=== PATIENT | female | born 1980 | race Caucasian/White ===

== ENCOUNTER 2018-03-03 17:08 | Inpatient (IN) | payer MEDICAID ==
[2018-03-03] MEDS ORDERED: MISOPROSTOL 200 MCG TAB PR (18:30)
[2018-03-03] MEDS ORDERED: CEFAZOLIN 2 GM/50 ML (PMX) 50 ML IV (18:30)
[2018-03-03] MEDS ORDERED: CARBOPROST 250 MCG INJ IM (18:30)
[2018-03-03] MEDS ORDERED: METHYLERGONOVINE 0.2 MG INJ IM (18:30)
[2018-03-03] MEDS: LACTATED RINGER'S 1,000 ML IV (18:49)
[2018-03-03 19:07] LABS: ADD MAN DIFF? NO
[2018-03-03 19:10] LABS: WHITE BLOOD COUNT 9.5 10^3/ul (4.8-10.8)
[2018-03-03 19:10] LABS: BASOPHILS % 0.2 % (0.0-2.0); EOSINOPHILS # 0.1 10^3/ul (0.0-0.5); HEMATOCRIT 35.4 % (37.0-47.0); LYMPHOCYTES # 1.8 10^3/ul (0.8-2.9); LYMPHOCYTES % 18.9 % (15.0-51.0); MEAN CORPUSCULAR HEMOGLOBIN 26.2 pg (29.0-33.0); MEAN CORPUSCULAR HGB CONC 31.1 g/dl (32.0-37.0); MEAN CORPUSCULAR VOLUME 84.3 fl (82.0-101.0); MEAN PLATELET VOLUME 11.1 fl (7.4-10.4); MONOCYTE # 0.6 10^3/ul (0.3-0.9); MONOCYTES % 6.1 % (0.0-11.0); NEUTROPHILS % 72.9 % (39.0-77.0); PLATELET COUNT 230 10^3/UL (140-415); RED CELL DISTRIBUTION WIDTH 18.9 % (11.5-14.5)
[2018-03-03 19:30] LABS: PROTIME 12.2 Sec (11.9-14.9)
[2018-03-03 19:31] LABS: PARTIAL THROMBOPLASTIN TIME 25.1 Sec (25.0-35.0)
[2018-03-03] MEDS ORDERED: ONDANSETRON 4 MG INJ (20:54)
[2018-03-03] MEDS ORDERED: METOCLOPRAMIDE 10 MG INJ (20:54)
[2018-03-03] MEDS ORDERED: BUPIVACAINE 0.75%/DEXT (SPINAL) 2 ML INJ (20:56)
[2018-03-03] MEDS ORDERED: morphine SULFATE/PF (10 MG/10 ML) INJ (20:56)
[2018-03-03] MEDS ORDERED: OXYTOCIN 10 UNIT INJ (20:56)
[2018-03-03] MEDS: METOCLOPRAMIDE (1 MG/ML) 10 ML CUP PO (21:00)
[2018-03-03] MEDS: ONDANSETRON 4 MG INJ IV (21:03)
[2018-03-03] MEDS: FAMOTIDINE 20 MG INJ IV (21:03)
[2018-03-03] MEDS: OXYTOCIN 30 UNITS/LR 500 ML IV (22:54)
[2018-03-03] MEDS ORDERED: FENTAnyl 50 MCG/ML VIAL IV ×2 (23:00)
[2018-03-03] MEDS ORDERED: ZOLPIDEM 5 MG TAB PO (23:00)
[2018-03-03] MEDS ORDERED: HYDROmorphONE 0.5 MG/0.5 ML SYG IV ×2 (23:00)
[2018-03-03] MEDS ORDERED: HYDROmorphONE 1 MG/5 ML IV SYRINGE IV ×3 (23:00)
[2018-03-03] MEDS ORDERED: NALOXONE (0.4 MG/ML) INJ IV (23:00)
[2018-03-03] MEDS ORDERED: ONDANSETRON 4 MG INJ IV ×2 (23:00)
[2018-03-03] MEDS ORDERED: KETOROLAC 30 MG INJ IV (23:00)
[2018-03-03] MEDS ORDERED: DIPHENHYDRAMINE 50 MG INJ IV ×2 (23:00)
[2018-03-04] MEDS: KETOROLAC 30 MG INJ IV ×3 (00:30→19:36)
[2018-03-04] MEDS ORDERED: MISOPROSTOL 200 MCG TAB PR (01:30)
[2018-03-04] MEDS ORDERED: METHYLERGONOVINE 0.2 MG INJ IM (01:30)
[2018-03-04] MEDS ORDERED: CARBOPROST 250 MCG INJ IM (01:30)
[2018-03-04] MEDS ORDERED: OXYTOCIN 30 UNITS/LR 500 ML IV (01:30)
[2018-03-04] MEDS ORDERED: OXYCODONE/ACETAMINOPHEN (5/325) TAB PO ×2 (01:30)
[2018-03-04] MEDS ORDERED: LANOLIN 7 GM TUBE TOP (01:30)
[2018-03-04] MEDS: CEFAZOLIN 1 GM/50 ML (PMX) 50 ML IVPB (02:02)
[2018-03-04] MEDS: OXYTOCIN 30 UNITS/LR 500 ML IV ×6 (02:37→21:21)
[2018-03-04] MEDS: SENNA/DOCUSATE NA (8.6MG/50MG) TAB PO ×2 (09:02→22:34)
[2018-03-04 10:27] LABS: ADD MAN DIFF? NO
[2018-03-04 10:34] LABS: WHITE BLOOD COUNT 11.2 10^3/ul (4.8-10.8)
[2018-03-04 10:34] LABS: BASOPHILS % 0.2 % (0.0-2.0); EOSINOPHILS # 0.1 10^3/ul (0.0-0.5); EOSINOPHILS % 0.6 % (0.0-7.0); HEMATOCRIT 30.9 % (37.0-47.0); HEMOGLOBIN 9.5 g/dl (12.0-16.0); LYMPHOCYTES # 1.2 10^3/ul (0.8-2.9); LYMPHOCYTES % 10.3 % (15.0-51.0); MEAN CORPUSCULAR HGB CONC 30.7 g/dl (32.0-37.0); MEAN CORPUSCULAR VOLUME 84.7 fl (82.0-101.0); MEAN PLATELET VOLUME 11.2 fl (7.4-10.4); MONOCYTE # 0.6 10^3/ul (0.3-0.9); MONOCYTES % 5.5 % (0.0-11.0); NEUTROPHIL # 9.3 10^3/ul (1.6-7.5); NEUTROPHILS % 82.9 % (39.0-77.0); PLATELET COUNT 191 10^3/UL (140-415); RED BLOOD COUNT 3.65 10^6/ul (4.20-5.40)
[2018-03-04 13:31] LABS: HEPATITIS B SURFACE ANTIGEN NEGATIVE (NEGATIVE)
[2018-03-04 15:02] LABS: RAPID PLASMA REAGIN NONREACTIVE (NR)
[2018-03-04] MEDS: IBUPROFEN 600 MG TAB PO (23:39)
[2018-03-05] MEDS: OXYTOCIN 30 UNITS/LR 500 ML IV ×5 (01:21→17:21)
[2018-03-05] MEDS: HYDROCODONE/APAP (5/325) TAB PO ×2 (03:04→16:00)
[2018-03-05] MEDS: IBUPROFEN 600 MG TAB PO ×3 (06:09→17:32)
[2018-03-05] MEDS: SENNA/DOCUSATE NA (8.6MG/50MG) TAB PO ×2 (09:52→20:30)
[2018-03-05] MEDS: NA PHOSPHATE/BIPHOS 133 ML ENEMA PR (17:38)
[2018-03-06] MEDS: IBUPROFEN 600 MG TAB PO ×3 (00:20→12:36)
[2018-03-06] MEDS: SENNA/DOCUSATE NA (8.6MG/50MG) TAB PO (09:29)
[2018-03-06] MEDS: DIPHTH/TET/ACEL PERTUSS (ADULT) 0.5 ML VIAL IM* (11:37)
== END 2018-03-06 15:00 | disposition home or self-care (01) | DRG 766 ==
LOC: OBT 17:08 → PP1 03-04 00:56 → L-D 17:09 → OBT 18:00 → L-D 18:00
PROVIDERS: Obstetrics & Gynecology
PROC: 10D00Z1 Extraction of Products of Conception, Low, Open Approach (ICD-10-PCS; principal; 2018-03-03 21:00)
DX: O34.211 Maternal care for low transverse scar from previous cesarean delivery (principal); Z3A.39 39 weeks gestation of pregnancy; Z37.0 Single live birth; O32.1XX0 Maternal care for breech presentation, not applicable or unspecified
CPT/HCPCS: 76815; 85025; 85610; 85730; 86592; 86850; 86900; 86901; 87340; 99464